=== PATIENT | female | born 1995 | race African-American/Black ===

== ENCOUNTER 2018-03-24 20:42 | Emergency (ER) | payer OTHER ==
[~2018-03-24] VITALS: Ht 172.7 cm; Wt 118.2 kg
[~2018-03-24 20:42] MED LIST: ALBUTEROL INH; BECL8.7A6 IH
[2018-03-24 20:50] VITALS: BP 130/78
[2018-03-24] MEDS ORDERED: AMIT10TA6 PO (20:52)
[2018-03-24 21:12] LABS: APPEARANCE,URINE CLOUDY (CLEAR); BILIRUBIN,URINE NEGATIVE (NEGATIVE); GLUCOSE, URINE (UA) NEGATIVE (NEGATIVE); KETONES,URINE NEGATIVE (NEGATIVE); LEUKOCYTE ESTERASE ,URINE SMALL (NEGATIVE); NITRATE,URINE NEGATIVE (NEGATIVE); OCCULT BLOOD,URINE NEGATIVE (NEGATIVE); PROTEIN,URINE NEGATIVE (NEGATIVE); UROBILINOGEN,URINE 0.2 mg/dL (<=1.0)
[2018-03-24 21:30] LABS: BACTERIA,URINE Rare /HPF (None Seen); RBC,URINE 0-2 /HPF (0-2); SQUAMOUS EPITHELIAL CELL,UR Few /LPF (None Seen)
== END 2018-03-24 23:46 | disposition left against medical advice (07) ==
LOC: EMS 20:42
DX: Z53.21 Procedure and treatment not carried out due to patient leaving prior to being seen by health care provider (principal)

== ENCOUNTER 2018-05-01 22:09 | Emergency (ER) | payer OTHER ==
[~2018-05-01] VITALS: Ht 172.7 cm; Wt 118.2 kg
[~2018-05-01 22:09] MED LIST changes: +AMIT10TA6 PO
[2018-05-01] MEDS ORDERED: ALBU8HFA IH (22:32)
[2018-05-01 22:42] LABS: BASOPHILS % (AUTO) 1.3 % (0.0-2.0); EOSINOPHILS % (AUTO) 3.7 % (1.0-6.0); HEMATOCRIT 42.2 % (36-46); HEMOGLOBIN 14.4 g/dL (12.0-16.0); LYMPHOCYTES # (AUTO) 3.3 K/uL (1.0-4.8); LYMPHOCYTES % (AUTO) 45.3 % (22.0-44.0); MEAN CORPUSCULAR HEMOGLOBIN 29.5 pg (26.0-34.0); MEAN CORPUSCULAR HGB CONC 34.1 G/dL (31.0-37.0); MEAN CORPUSCULAR VOLUME 87 fL (80-100); MONOCYTES # (AUTO) 0.4 K/uL (0.1-1.0); MONOCYTES % (AUTO) 5.3 % (2.0-9.0); NEUTROPHILS # (AUTO) 3.2 K/uL (1.8-7.7); NEUTROPHILS % (AUTO) 44.4 % (40.0-70.0); PLATELET COUNT (AUTO) 280 K/uL (150-450); RED BLOOD CELL COUNT(AUTO) 4.87 MIL/uL (4.00-5.20); RED CELL DISTRIBUTION WIDTH 13.1 % (11.5-14.5)
[2018-05-02 00:01] VITALS: BP 112/82
== END 2018-05-02 01:19 | disposition home or self-care (01) ==
LOC: EMS 22:10
DX: N93.9 Abnormal uterine and vaginal bleeding, unspecified (principal); J45.909 Unspecified asthma, uncomplicated
CPT/HCPCS: 99284

== ENCOUNTER 2018-09-28 10:56 | Emergency (ER) | payer OTHER ==
[~2018-09-28] VITALS: Ht 165.1 cm; Wt 95.5 kg
[~2018-09-28 10:56] MED LIST changes: +ALBU8HFA IH; -ALBUTEROL INH
[2018-09-28 11:00] VITALS: BP 108/66
== END 2018-09-28 13:44 | disposition left against medical advice (07) ==
LOC: EMS 10:59
DX: R10.84 Generalized abdominal pain (principal); R11.10 Vomiting, unspecified; J45.909 Unspecified asthma, uncomplicated; Z53.21 Procedure and treatment not carried out due to patient leaving prior to being seen by health care provider